=== PATIENT | male | born 2000 | race Caucasian/White ===

== ENCOUNTER 2024-01-28 22:23 | Emergency (ER) | payer BC, SELFPAY ==
[2024-01-28 22:29] VITALS: BP 125/60; PULSE 53; RESP 14; TEMP 36.6; O2SAT 100
--- NOTE | 2024-01-28 23:56 | PC.NURSE ---
Pt and mother walk up to intake desk and state they are leaving. Pt left without being seen by provider.
--- OUTSIDE RECORDS SUMMARY | 2024-02-05 00:26 | XMS_ITS | Encounter Summary ---
Author Organization [facility] Address [address] [place] [address] Care Team Providers Care Promotions Team Leader Name Role Phone Joseph Ramsay MD Primary Care Provider [phone] Reason for Visit * Reason Comments Laceration Facial Was tackled during f ootball, afterwards had a facial laceration to the left face, injury occurred around 1830 Encounter Details Date Type Department Care Team (Late st Contact Info) Description 10/04/2023 8:11 PM CDT - 10/04/2023 8:56 PM CDT Emergency [facility] EMERGENCY/URGENT [address] [place], [place] [id number] Rogelio Farr, [address] [place], [place] [id number] Facial laceration, initial encounter Discharge Disposition: Home or Self Care Social History Tobacco Use Types Packs/Day Years Used Date Smoking Tobacco: Never Smokeless Tobacco: Never Tobacco Cessation:Counseling Given: Not Answered Alcohol Use Standard Drinks/Week Comments Not Currently 0 (1 standard drink = 0.6 oz pur e alcohol) Sex and Gender Information Value Date Recorded Sex Assigned at Not on file Gender Identity Not on file Sexual Orientation Not on file documented as of this encounter Last Filed Vital Signs Vital Sign Reading Time Taken Comments Blood Pressure 130/79 10/04/2023 8:11 PM CDT Pulse 63 10/04/2023 8:11 PM CDT Temperature 36.5 ??C (97.7 ??F) 10/04/2023 8:11 PM CD T Respiratory Rate 16 10/04/2023 8:11 PM CDT Oxygen Saturation 96% 10/04/2023 8:11 PM CDT Inhaled Oxygen Concentration - - Weight 85.2 kg (187 lb 12.8 oz) 10/04/2023 8:11 PM CDT Height 182.9 cm (6') 10/04/2023 8:11 PM CDT Body Mass Index 25.47 10/04/2023 8:11 PM CDT documented in this encounter Discharge Instructions * Discharge Instructions* Rogelio Farr DO - 10/04/2023 8:40 PM CDT The glue willl fall off on its own. Sunblock SPF 30 for a year. It was a pleasure taking care of you today! Please make sure all of your questions and concerns are answered today before you leave. Return here or to the nearest ER as quickly as possible if worse in anyway or no better or something does not feel right. You should really watch for things like worsening pain, redness, fevers. If this happens you need to come immediately back to the nearest ER to have us look at you again. documented in this encounter ED Notes * Rogelio Farr DO - 10/04/2023 8:15 PM CDT Images from the original note were not included. Ramon Lazaro [id number] [facility] EM[facility] History Chief Complaint Patient presents with Laceration Facial Was tackled during football, afterwards had a facial laceration to the left face, injury occurred around 1830 Pt was playign footballa nd got tackled Came up off the ground nad had a laceration to the right cheek Face feels fine Jaw feels fine Bite feels fine No LOC Otherwise no other injuries or complaints. Past Medical History: Diagnosis Date Hand trauma right pinky fracture Past Surgical History: Procedure Laterality Date OR REVISE TEAR DUCT OPENING No family history on file. Social History Socioeconomic History Marital status: Spouse name: Not on file Number of children: Not on file Years of education: Not on file Highest education level: Not on file Occupational History Not on file Tobacco Use Smoking status: Never Smokeless tobacco: Never Substance and Sexual Activity Alcohol use: Not Currently Drug use: Not Currently Sexual activity: Not on file Other Topics Concern Not on file Social History Narrative Patient in the 6th grade. Lives with mother and father in [place]. Social Determinants of Health Financial Resource Strain: Not on file Food Insecurity: Not on file Transportation Needs: Not on file Stress: Not on file Housing Stability: Not on file Review of Systems Review of Systems Constitutional: Negative for fever. Respiratory: Negative for shortness of breath. Cardiovascular: Negative for chest pain. Gastrointestinal: Negative for vomiting. Neurological: Negative for headaches. All other systems reviewed and are negative. Physical Exam BP 130/79 Pulse 63 Temp 97.7 ??F (36.5 ??C) Resp 16 Ht 1.829 m (6') Wt 85.2 kg (187 lb 12.8 oz) SpO2 96% BMI 25.47 kg/m?? Physical Exam Vitals and nursing note reviewed. Constitutional: General: He is not in acute distress. HENT: Head: Normocephalic. Comments: Right cheek mild swelling, no bony tenderness. Bite normal. No midface instability. 1cm well approximated laceraiton just thru dermis to right cheek. Eyes: Conjunctiva/sclera: Conjunctivae normal. Pulmonary: Effort: No respiratory distress. Breath sounds: No stridor. Abdominal: Tenderness: There is no guarding. Skin: General: Skin is warm. Neurological: Mental Status: He is alert. Medications No current outpatient medications on file. Procedures Procedures Lab Interpretation Oxygen Saturation Interpretation No results found for this visit on 10/04/23. No orders to display Progress Notes ED Course Clinical Impressions as of 10/04/23 2350 Facial laceration, initial encounter Medical Decision Making The patient will require wound closure of this wound. Upon examination I do not find any evidence of bony injury. The patient's tetanus status is now up to date since I boosted him. Besides the laceration I do not feel that any other imaging needs to be performed,and there are no other complaints that need to be addressed at this time, and they agree. Procedure Note - Wound Repair: Procedure performed by myself. The wound, located on the right cheek, measured 1 cm and was linear. The level of complexity was: simple. The neurovascular exam was Normal. No evidence of foreign body was found on examination. The wound was irrigated with copious NS. The wound was closed using skinaffix.. Risk Prescription drug management. Orders Placed This Encounter Tdap (yepnjyk-ekrinjauly-aybte pertussis) (Boostrix) (7y+) injection 0.5 mL Follow-up Information Joseph Ramsay MD. Specialty: Pediatrics Contact information: [address] [place] [address] [facility] EM[facility]. Specialty: Emergency Room Contact information: [address] [facility] [address] documented in this encounter Plan of Treatment Not on file documented as of this encounter Visit Diagnoses Diagnosis Facial laceration, initial encounter documented in this encounter Care Teams Promotions Team Leader Relationship Specialty Start Date End Date Joseph Ramsay MD PCP - General Pediatrics 06/27/13 documented as of this encounter
--- OUTSIDE RECORDS SUMMARY | 2024-02-05 00:26 | XMS_ITS | Patient Health Summary ---
Author Organization [facility] Address [address] [place] [address] Care Team Providers Care Idea Worker Name Role Phone Joseph Ramsay MD Primary Care Provider [phone] Note from [facility] [place]note 2],non-owned Affiliates and Associated Physician Practices is amultiple site organization consisting of ambulatory clinics and hospital sitesin [place], [place], [place] and [place]. This disclosure is being madepursuant to the Care Everywhere program and may not contain all information available regarding this patient. Last updated 17.[facility] [employer] Allergies No known active allergies Medications Be aware that medications may not be up to date on this document. Always verify current medications with the patient. No known medications Active Problems No known active problems Immunizations * TDAP (7yrs+)(Given 10/04/2023) Social History Tobacco Use Types Packs/Day Years Used Date Smoking Tobacco: Never Smokeless Tobacco: Never Tobacco Cessation:Counseling Given: Not Answered Alcohol Use Standard Drinks/Week Comments Not Currently 0 (1 standard drink = 0.6 oz pur e alcohol) Sex and Gender Information Value Date Recorded Sex Assigned at Not on file Gender Identity Not on file Sexual Orientation Not on file Last Filed Vital Signs Vital Sign Reading [...] Mass Index 25.47 10/04/2023 8:11 PM CDT Procedures * XR SHOULDER LEFT 2VW OR MORE(Performed 12/22/2016) Performed for Chronic left shoulder pain * XR HAND RIGHT 3VW OR MORE(Performed 07/18/2013) Performed for Finger fracture, right * XR HAND RIGHT 3VW OR MORE(Performed 06/27/2013) Performed for Finger fracture, right Results * XR SHOULDER 2+ VW LEFT (12/22/2016 3:48 PM PRIVATE EQUITY ASSOCIATE) Anatomical Region Laterality Modality Upper Extremity Radiographic Melissa ging 12/22/2016 3:56 PM PRIVATE EQUITY ASSOCIATE Impressions 12/22/2016 3:59 PM PRIVATE EQUITY ASSOCIATE Normal Narrative 12/22/2016 3:59 PM PRIVATE EQUITY ASSOCIATE Left shoulder, 3 views December 22, 2016 HISTORY: Pain in left shoulder Axillary, internal and external rotation views are obtained. No dislocation is present. The acromioclavicular joint is normal. There is no fracture, dislocation, or abnormal bone production or destruction. Procedure Note Ck Hernandez MD - 12/22/2016 Left shoulder, 3 views December 22, 2016 HISTORY: Pain in left shoulder Axillary, internal and external rotation views are obtained. No dislocation is present. The acromioclavicular joint is normal. There is no fracture, dislocation, or abnormal bone production or destruction. IMPRESSION Normal Luis Desir MD DIAGNOSTIC IMAGING O RDERABLES * XR HAND 3+ VW RIGHT (07/18/2013 9:18 AM CDT) Only the most recent of2 resultswithin the time period is included. Anatomical Region Laterality Modality Wrist / Hand Radiographic Melissa ging 07/18/2013 11:1 1 AM CDT Impressions 07/18/2013 11:13 AM CDT Fracture, fifth metacarpal neck, healing. Narrative 07/18/2013 11:13 AM CDT Right hand three views The fifth metacarpal neck fracture is unchanged in position and alignment since 06/27/2013. Calcified callus has increased. Procedure Note Earline Chambers MD - 07/18/2013 Right hand three views The fifth metacarpal neck fracture is unchanged in position and alignment since 06/27/2013. Calcified callus has increased. IMPRESSION Fracture, fifth metacarpal neck, healing. Mariely Prince MD DIAGNOSTIC IMAG ING ORDERABLES Care Teams Idea Worker Relationship Specialty Start Date End Date Joseph Ramsay MD PCP - General Pediatrics 06/27/13
--- OUTSIDE RECORDS SUMMARY | 2024-02-05 00:26 | XMS_ITS | Clinical Summary ---
Author Organization [facility] [address] [facility] Address [address] [place] [address] Care Team Providers Care Legal Counsel Name Role Phone Teena Gallego Primary Care Provider [phone] Allergies No known active allergies Medications No known medications Active Problems Problem Noted Date Diagnosed Date Human papilloma virus (HPV) type 9 vaccine admin istered 08/01/2020 Assessment & Plan (08/01/2020 9:58 AM CDT): #2 given today. #3 due in 4 months. BMI 25.0-25.9,adult 07/28/2020 Assessment & Plan (07/28/2020 2:25 PM CDT): Weight/BMI is in healthy range. Continue healthy lifestyle to maintain. History of 2019 novel coronavirus disease (COVID -19) 07/28/2020 Assessment & Plan (07/28/2020 2:45 PM CDT): October 2019 Annual physical exam 07/28/2020 Assessment & Plan (08/31/2021 11:48 AM CDT): Form completed for school, copy will be scanned into chart. Copy was additionally given to the patient. Assessment & Plan (08/01/2020 9:58 AM CDT): Encouraged healthy lifestyle, good nutrition and exercise. Encouraged Calcium and Vitamin D and weight bearing exercise for bone health. Reviewed immunizations Reviewed age appropirate screenings. Has only recvd one Gardasil. Will provide #2 today and #3 is due in 4 months. I don't have a record of Meningitis B vaccine. Reviewed benefit with him living on campus. He will check with his mom. Resolved Problems Problem Noted Date Diagnosed Date Resolved Date COVID-19 07/28/2020 07/28/2020 Encounter for Medicare annual wellness exam 07/28/2020 08/01/2020 Immunizations Name Administration Dates Next Due DTaP, Unspecified 06/28/2006, 3,2001,08/23,2001 HPV9 07/28/2020,07/09/2019 Hep A, Unspecified 08/04/2009,07/06/2008 Hep B, Unspecified 07/25/2002,2001, 002 HiB 07/25/2002,2001,2001 Influenza, Unspecified 09/01/2022(Deferr ed: Patient Refused),03/08/2021(Deferred: Patient Refused) MMR 06/28/2006,07/25/2002 Meningococcal B, OMV (Bexsero) 07/09/2019 Meningococcal MCV4P (Menactra) 07/09/2019,2012 Pfizer SARS-CoV-2 Monovalent Vaccination (12+ Yrs) PURPLE 07/10/2020,06/12/2020 Pneumococcal Conjugate PCV 13 2002 ,01/20/2002,2001,06/26 Polio, Unspecified 06/28/2006, 3,2001,08/23 Tdap 09/29/2011 Varicella 06/28/2006,2002 Surgical History Surgery Date Site/Laterality Comments EYE SURGERY 6 months old, tear ducts Family History Medical History Relation Name Comments No Known Problems Father Diabetes Maternal Grandfather Liver cancer Maternal Grandmother Hyperthyroidism Mother Relation Name Status Comments Father Alive Maternal Grandfather Maternal Grandmother Mother Alive Social History Tobacco Use Types Packs/Day Years Used Date Smoking Tobacco: Never Smokeless Tobacco: Never Tobacco Cessation:Counseling Given: Not Answered AUDIT-C Answer Date Recorded Q1: How often do you have a drink containing alc ohol? Never 08/31/2021 Average Number of Drinks Not on file 022 Frequency of Binge Drinking Not on file 08/06 PHQ-2 Answer Date Recorded PHQ-2 Total Score (If total score is 3 or more points, staff should administer the PHQ-9) 0 09/01/2022 Personal Safety Answer Date Recorded Getting School Help Needed Not on file 02/03 Sex and Gender Information Value Date Recorded Sex Assigned at Not on file Legal Sex Male 11:17 AM CDT Gender Identity Not on file Sexual Orientation Not on file Obstetrics History Last Filed Vital Signs Vital Sign Reading Time Taken Comments Blood Pressure 110/76 09/01/2022 9:36 AM CDT Pulse 54 09/01/2022 9:36 AM CDT Temperature 36.5 ??C (97.7 ??F) 09/01/2022 9:36 AM CD T Respiratory Rate 12 08/31/2021 8:39 AM CDT Oxygen Saturation 98% 09/01/2022 9:36 AM CDT Inhaled Oxygen Concentration - - Weight 85.7 kg (189 lb) 09/01/2022 9:36 AM CDT Height 181.6 cm (5' 11.5 ) 09/01/2022 9:36 AM CD T Body Mass Index 25.99 09/01/2022 9:36 AM CDT Plan of Treatment Health Maintenance Due Date Last Done Comments Hepatitis C Screening 2001 Meningococcal B Vaccine (2 o f 2 - Risk Bexsero 2-dose series) 08/06/2019 07/09/2019 HPV Vaccines (3 - Male 3-dos e series) 10/20/2020 07/28/2020, 07/09/2019 DTaP/Tdap/Td Vaccine (7 - Td or Tdap) 09/28/2021 09/29/2011, 06/28/2006, 10/24/2002, Additional history exists Depression Screening 09/02/2023 09/01/2022, 08/31/2021, 07/28/2020 Regular Well Visit/Exam 18-64 09/02/2023 09/01/2022, 07/28/2020 Covid-19 Vaccine (3 - 2023-2 5 season) 2023 07/10/2020, 06/12/2020 Influenza Vaccine (#1) 2023 Pneumococcal vaccine <65 Completed 003, 01/20/2002, 2001, Additional history exists Varicella Vaccines Completed 06/28/2006, 2002 Insurance [employer] ACCESS CHOICE Care Teams Legal Counsel Relationship Specialty Start Date End Date Teena Gallego PA [address] [place] [address] PCP - General Internal Medicine 07/13/20
--- OUTSIDE RECORDS SUMMARY | 2024-02-05 00:26 | XMS_ITS | Encounter Summary ---
Author Organization [facility] Address [address] [place] [address] Care Team Providers Care Studio Associate Name Role Phone Joseph Ramsay MD Primary Care Provider [phone] Reason for Visit * Reason Comments Fracture Finger broke right pinky 4 weeks ago, today cast removal and xray done Encounter Details Date Type Department Care Team (Late st Contact Info) Description 07/18/2013 9:20 AM CDT - 07/18/2013 11:59 PM CDT Hospital Encounter [facility] Pediatrics - Plastic Surgery Division of Plastic Surgery [address] [place] [id number] Mariely Prince MD [address] [place] [id number] Discharge Disposition: Home or Self Care Social History Tobacco Use Types Packs/Day Years Used Date Smoking Tobacco: Never Assessed Sex and Gender Information Value Date Recorded Sex Assigned at Not on file Gender Identity Not on file Sexual Orientation Not on file documented as of this encounter Discharge Instructions * Patient Instructions* Merly Dempsey RN - 07/18/2013 9:57 AM CDT Please call with any questions, concerns or problems. documented in this encounter Progress Notes * Leann Mason - 07/18/2013 11:59 AM CDT Removed right SAC intrinsic plus. Skin dry and intact. * Mariely Prince MD - 07/18/2013 9:54 AM CDT Images from the original note were not included. Attending Physician: Mariely Prince MD Office Division of Pediatric Plastic Surgery 07/18/2013 9:54 AM PLASTIC SURGERY outpatient note Chief Complaint Patient presents with ??? Fracture Finger broke right pinky 4 weeks ago, today cast removal and xray done HISTORY OF PRESENT ILLNESS Ramon Lazaro is a 13 y.o. male who sustained a LSF MC head fracture 1 month ago. He has been in a cast for about 3.5 weeks, and tolerated it well. The cast was removed today and he has no pain, only minimal residual stiffness. Plastic Surgery History ?? ~06/20/13 fractured RSF ?? 06/27/13 seen at [facility] clinic, placed in ulnar gutter cast ?? 07/18/13 cast removed, x-ray shows good healing The frequency of the symptoms is improved. The patient's dominant hand is the Right. PAST MEDICAL AND SURGICAL HISTORY Past Medical History Diagnosis Date ??? Hand trauma right pinky fracture Past Surgical History Procedure Date ??? Pr revise tear duct opening No Known Allergies No current outpatient prescriptions on file. FAMILY HISTORY No family history on file. SOCIAL HISTORY Social History: History Social History Narrative Patient in the 6th grade. Lives with mother and father in [place]. REVIEW OF SYSTEMS Constitutional: no fevers, chills Musculoskeletal: no pain, slightly stiff from cast Neurologic: Negative and Constitutional: no fevers or chills Craniomaxillofacial: as defined above in HPI PHYSICAL EXAM General: alert, interactive male in no acute distress Extremities: right small finger w/o any bruising/sweling. Non-tender to palpation. Able to easily flex to full fist w/o any rotation/scissoring. Neurologic: alert, awake, no focal neurological deficits IMAGING AND STUDIES For the consultation question at hand, I independently visualized the following relevant studies: X-ray hand: no visible fracture. Good alignment. ASSESSMENT AND PLAN 13 yom about 5 weeks out from LSF MC head fx - doing well - clinically/radiographically healed - gentle activity for the next week, then normal activities as milind - RTC as needed Mariely Prince MD CC: Joseph Ramsay [id number] [facility] [id number] Date: 07/18/2013 9:54 AM * Ying Smith MD - 07/18/2013 9:52 AM CDT PLASTIC SURGERY outpatient note Chief Complaint Patient presents with ??? Fracture Finger broke right pinky 4 weeks ago, today cast removal and xray done HISTORY OF PRESENT ILLNESS Ramon Lazaro is a 13 y.o. male who sustained a LSF MC head fracture. He has been in a cast forabout 3.5 weeks, and tolerated it well. The cast was removed today and he has no pain, only minimalresidual stiffness. Plastic Surgery History ?? ~06/20/13 fractured RSF ?? 06/27/13 seen at [facility] clinic, placed in ulnar gutter cast ?? 07/18/13 cast removed, x-ray shows good healing The frequency of the symptoms is improved. . The patient's dominant hand is the Right. PAST MEDICAL AND SURGICAL HISTORY Past Medical History Diagnosis Date ??? Hand trauma right pinky fracture Past Surgical History Procedure Date ??? Pr revise tear duct opening No Known Allergies No current outpatient prescriptions on file. FAMILY HISTORY No family history on file. SOCIAL HISTORY Social History: History Social History Narrative Patient in the 6th grade. Lives with mother and father in [place]. REVIEW OF SYSTEMS Constitutional: no fevers, chills Musculoskeletal: no pain, slightly stiff from cast Neurologic: Negative and Constitutional: no fevers or chills Craniomaxillofacial: as defined above in HPI PHYSICAL EXAM General: alert, interactive, no acute distress Extremities: right small finger w/o any bruising/sweling. Non-tender to palpation. Able to easily flex to full fist w/o any rotation/scissoring. Neurologic: alert, awake, no focal neurological deficits X-ray hand: no visible fracture. Good alignment. ASSESSMENT AND PLAN 13 yom about 5 weeks out from LSF MC head fx - doing well - clinically/radiographically healed - gentle activity for the next week, then normal activities - RTC as needed documented in this encounter Miscellaneous Notes * Miscellaneous Scans - Document, Scanned - 07/22/2013 12:28 AM CDT documented in this encounter Plan of Treatment Not on file documented as of this encounter Visit Diagnoses Not on filedocumented in this encounter Care Teams Studio Associate Relationship Specialty Start Date End Date Joseph Ramsay MD PCP - General Pediatrics 06/27/13 documented as of this encounter
--- OUTSIDE RECORDS SUMMARY | 2024-02-05 00:26 | XMS_ITS | Referral Summary ---
Author Organization [facility] [address] [place] [address] Care Team Providers Care Conservation Coordinator Name Role Phone Teena Gallego Primary Care Provider [phone] Allergies No known active allergies Medications No [...] Unspecified 06/28/2006, 3,2001,08/23 Tdap 09/29/2011 Varicella 06/28/2006,2002 Social History Tobacco Use Types Packs/Day Years [...] 09/01/2022 9:36 AM CDT Plan of Treatment Not on file Insurance [facility] [employer] Care Teams Conservation Coordinator Relationship Specialty Start Date End Date Teena Gallego PA [address] [place] [address] PCP - General Internal Medicine 07/13/20
--- OUTSIDE RECORDS SUMMARY | 2024-02-05 00:26 | XMS_ITS | Encounter Summary ---
Author Organization [facility] Address [address] [place] [address] Care Team Providers Care Insulation Extruder Operator Name Role Phone Teena Gallego Primary Care Provider +1- [phone] Reason for Visit * Reason Comments Establish Care physical Encounter Details Date Type Department Care Team (Late st Contact Info) Description 07/28/2020 2:15 PM CDT Office Visit [facility] Family Medicine [address] [place] [address] Teena Gallego PA [address] [place] [address] Annual physical exam (Primary Dx); BMI 25.0-25.9,adult; Human papilloma virus (HPV) type 9 vaccine administered Social History Tobacco Use Types Packs/Day Years Used Date Smoking Tobacco: Never Smokeless Tobacco: Never PHQ-2 Answer Date Recorded PHQ-2 Total Score (If total score is 3 or more points, staff should administer the PHQ-9) 0 07/28/2020 Sex and Gender Information Value Date Recorded Sex Assigned at Not on file Legal Sex Male 11:17 AM CDT Gender Identity Not on file Sexual Orientation Not on file documented as of this encounter Last Filed Vital Signs Vital Sign Reading Time Taken Comments Blood Pressure 112/80 07/28/2020 2:23 PM CDT Pulse 64 07/28/2020 2:23 PM CDT Temperature - - Respiratory Rate 18 07/28/2020 2:23 PM CDT Oxygen Saturation 98% 07/28/2020 2:23 PM CDT Inhaled Oxygen Concentration - - Weight 85.5 kg (188 lb 6.4 oz) 07/28/2020 2:23 P M CDT Height 181.6 cm (5' 11.5 ) 07/28/2020 2:23 PM CD T Body Mass Index 25.91 07/28/2020 2:23 PM CDT documented in this encounter Progress Notes * Teena Gallego PA - 07/28/2020 2:15 PM CDT Subjective/Objective Patient ID: Ramon Lazaro is a 20 y.o. male. Chief Complaint Establish Care (physical) Vitals: 07/28/20 1423 BP: 112/80 Pulse: 64 Resp: 18 SpO2: 98% Weight: 85.5 kg (188 lb 6.4 oz) Height: 181.6 cm (5' 11.5 ) SUBJECTIVE: Ramon Lazaro is a 20 y.o. male presenting for well adolescent and school/sports physical. He is seen today alone. He needs an [facility] physical as he is playing football at [employer]. 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 [facility] requires Sickle cell labs -- he states he did it last year so will request it from [facility]. Planning Engineering degree. Had COVID in Oct 2019. Denies any residual sxs. PMH: No asthma, diabetes, heart disease, epilepsy or orthopedic problems in the past. ROS: no wheezing, cough or dyspnea, no chest pain, no abdominal pain, no headaches, no bowel or bladder symptoms, no pain or lumps in groin or testes. No problems during sports participation in the past. Social History: Denies the use of tobacco, alcohol or street drugs. Sexual history: not sexually active Parental concerns: patient doesn't voice any other concerns. OBJECTIVE: General appearance: WDWN male. ENT: ears and throat normal Eyes: Vision : 20/25 without correction PERRLA, fundi normal. Neck: supple, thyroid normal, no adenopathy Lungs: clear, no wheezing or rales Heart: no murmur, regular rate and rhythm, normal S1 and S2 Abdomen: no masses palpated, no organomegaly or tenderness Genitalia: genitalia not examined Spine: normal, no scoliosis Skin: Normal with no acne noted. Neuro: normal Extremities: normal Assessment/Plan Diagnoses and all orders for this visit: Annual physical exam (Z00.00) (Primary) Assessment & Plan: Encouraged healthy lifestyle, good nutrition and exercise. Encouraged Calcium and Vitamin D and weight bearing exercise for bone health. Reviewed immunizations Reviewed age appropirate screenings. Has only recvd one Gardasil. Will provide #2 today and #3 is due in 4 months. I don't have a record of Meningitis B vaccine. Reviewed benefit with him living on campus. He will check with his mom. Orders: - POCT urinalysis dipstick BMI 25.0-25.9,adult (Z68.25) Assessment & Plan: Weight/BMI is in healthy range. Continue healthy lifestyle to maintain. Human papilloma virus (HPV) type 9 vaccine administered (Z23) Assessment & Plan: #2 given today. #3 due in 4 months. Orders: - HPV9 Vaccine 2 or 3 dose IM Counseling: nutrition, safety, smoking, alcohol, drugs, puberty, peer interaction, sexual education, exercise, preconditioning for Sports. Reviewed concussion recognition/protocol Reviewed testicular cancer and self exam. Will complete form once Sickle cell labs are received from [facility]. documented in this encounter Miscellaneous Notes * Assessment & Plan Note - Teena Gallego PA - 08/01/2020 9:58 AM CDT Associated Problem(s): Human papilloma virus (HPV) type 9 vaccine administered #2 given today. #3 due in 4 months. * Assessment & Plan Note - Teena Gallego PA - 08/01/2020 9:52 AM CDT Associated Problem(s): Annual physical exam Encouraged healthy lifestyle, good nutrition and exercise. Encouraged Calcium and Vitamin D and weight bearing exercise for bone health. Reviewed immunizations Reviewed age appropirate screenings. Has only recvd one Gardasil. Will provide #2 today and #3 is due in 4 months. I don't have a record of Meningitis B vaccine. Reviewed benefit with him living on campus. He will check with his mom. * Assessment & Plan Note - Teena Gallego PA - 07/28/2020 2:45 PM CDT Associated Problem(s): History of 2019 novel coronavirus disease (COVID-19) October 2019 * Assessment & Plan Note - Tracy Gore LPN - 07/28/2020 2:25 PM CDT Associated Problem(s): BMI 25.0-25.9,adult Weight/BMI is in healthy range. Continue healthy lifestyle to maintain. documented in this encounter Plan of Treatment Not on file documented as of this encounter Procedures Procedure Name Priority Date/Time Associated Diagnosis Comments POCT URINALYSIS DIPSTICK Routine 07/28/2020 3:42 PM CDT Annual physical exam documented in this encounter Results * POCT urinalysis dipstick (07/28/2020 3:42 PM CDT) Color, Urine, POC Yellow Clarity, ur, POC Clear Clear Glucose, ur, POC Negative Negative mg/dL Bilirubin, ur, POC Negative Negative, Small, Moderate, Large Ketones, ur, POC Negative Negative Specific [place], POC 1.030 1.005 - 1.030 Blood, ur, POC Negative Negative pH, ur, POC 5.5 5.0 - 8.0 Protein, ur, POC Negative Negative Urobilinogen, urine, POC 0.2 0.2 - 1.0 mg/dL Nitrite, ur, POC Negative Negative Leukocytes, ur, POC Negative Negative Lot Number [id number] Urine 07/28/2020 3:42 PM CDT Teena WOOD POINT OF CARE TEST ORDERAB LES Final Result documented in this encounter Visit Diagnoses Diagnosis Annual physical exam- Primary Routine general medical examination at a health care facility BMI 25.0-25.9,adult Human papilloma virus (HPV) type 9 vaccine administered documented in this encounter Orders Immunization/Injection Count Last Ordered Date First Ordered Date HPV9 VACCINE 3 DOSE IM 1 07/28/2020 documented in this encounter Care Teams Insulation Extruder Operator Relationship Specialty Start Date End Date Teena Gallego PA [address] [address] PCP - General Internal Medicine 07/13/20 documented as of this encounter
--- OUTSIDE RECORDS SUMMARY | 2024-02-05 00:26 | XMS_ITS | Encounter Summary ---
Author Organization [facility] Address [address] [place] [address] Care Team Providers Care Distributor Advertising Material Name Role Phone Teena Gallego Primary Care Provider +1- [phone] Reason for Visit * Reason Onset Date Comments Paperwork 08/23/2020 Encounter Details Date Type Department Care Team (Late st Contact Info) Description 08/23/2020 Telephone [facility] Family Medicine [address] [place] [address] Teena Gallego PA [address] [place] [address] Paperwork Social History Tobacco Use Types Packs/Day Years [...] on file documented as of this encounter Miscellaneous Notes * Telephone Encounter - Tracy Gore LPN - 08/23/2020 4:39 PM CDT Received sickle cell report from [facility]. Mother contacted, will strip picker completed paperwork from office today. * Telephone Encounter - Casey Borrego MA - 08/23/2020 2:26 PM CDT Mother reach out to Dr. Zimmerman. Will go pick paper from his office. Pt would then in the office so we could make a copy/ scan in chart. * Telephone Encounter - Teena Gallego PA - 08/23/2020 11:31 AM CDT I am waiting on the Sickle cell report. Patient told us it was done at [facility]. We requested it from [facility] and we were told there was not a Sickle cell screen in their records. Encourage patient to request the results from Dr. Zimmerman (he can pick them up or have them faxed tous) OR he can come to our office to sign a written request so that we can request them for him (we just have to have his signature for Dr. Zimmerman to release it to us). The form is completed and ready to go once that report is received. * Telephone Encounter - Zunilda Ace - 08/23/2020 11:19 AM CDT Patients mom called in to check the status of the [employer] sports physical patient brought in for his INSTRUCTOR PSYCHIATRIC AIDE 07/28 OV. Patient has sickle cell test done in 2019, previous Diesel Service Journeyman was Dr. Zimmerman in [place]. Patient needs forms to turn back in by 09/05. Patients mom said that someone called letting her know that they were having trouble locating the sickle cell test at [facility] and patients mom said that the former general cleaner should have a copy. Patients mom said after that she had not heard anything. Did not see any notes regarding this matter in patients chart. documented in this encounter Plan of Treatment Not on file documented as of this encounter Visit Diagnoses Not on filedocumented in this encounter Care Teams Distributor Advertising Material Relationship Specialty Start Date End Date Teena Gallego PA [address] [place] [address] PCP - General Internal Medicine 07/13/20 documented as of this encounter
--- OUTSIDE RECORDS SUMMARY | 2024-02-05 00:26 | XMS_ITS | Encounter Summary ---
Author Organization [facility] Address [address] [place] [address] Care Team Providers Care Degreaser Name Role Phone Teena Gallego Primary Care Provider +1- [phone] Reason for Visit * Reason Comments Annual Exam Pt states he needs a complete check up for [employer], including a glucose test. Encounter Details Date Type Department Care Team (Late st Contact Info) Description 08/31/2021 8:45 AM CDT Office Visit [facility] Family Medicine [address] [place] [address] Elke Schaeffer PA [address] [place] [address] Annual physical exam (Primary Dx); BMI 26.0-26.9,adult Social History Tobacco Use Types Packs/Day Years Used Date Smoking Tobacco: Never Smokeless Tobacco: Never AUDIT-C Answer Date Recorded Q1: How often do you have a drink containing alc ohol? Never 08/31/2021 Average Number of Drinks Not on file 022 Frequency of Binge Drinking Not on file 08/06 PHQ-2 Answer Date Recorded PHQ-2 Total Score (If total score is 3 or more points, staff should administer the PHQ-9) 0 08/31/2021 Sex and Gender Information Value Date Recorded Sex Assigned at Not on file Legal Sex Male 11:17 AM CDT Gender Identity Not on file Sexual Orientation Not on file documented as of this encounter Last Filed Vital Signs Vital Sign Reading Time Taken Comments Blood Pressure 116/68 08/31/2021 8:39 AM CDT Pulse 56 08/31/2021 8:39 AM CDT Temperature 36.1 ??C (97 ??F) 08/31/2021 8:39 AM CDT Respiratory Rate 12 08/31/2021 8:39 AM CDT Oxygen Saturation 99% 08/31/2021 8:39 AM CDT Inhaled Oxygen Concentration - - Weight 88 kg (194 lb) 08/31/2021 8:39 AM CDT Height 181.6 cm (5' 11.5 ) 08/31/2021 8:39 AM CD T Body Mass Index 26.68 08/31/2021 8:39 AM CDT documented in this encounter Progress Notes * Elke Schaeffer PA - 08/31/2021 8:45 AM CDT Images from the original note were not included. Chief Complaint Annual Exam (Pt states he needs a complete check up for [employer], including a glucose test.) HPI Here for annual sports exam. 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 He is studying [employer]. He reports no new medical concerns at this time. He is not on any medications, and he has not had any surgeries. He denies any chest pain, shortness of breath, headaches, seizures, headaches or head injuries. He also notes that he needs a urinalysis to check for protein and glucose while he is here. Allergies as of 08/31/2021 ??? (No Known Allergies) No outpatient encounter medications on file as of 08/31/2021. No facility-administered encounter medications on file as of 08/31/2021. Review of Systems Constitutional: Negative for fatigue, fever and unexpected weight change. HENT: Negative for congestion. Respiratory: Negative for cough, chest tightness and shortness of breath. Cardiovascular: Negative for chest pain and palpitations. Gastrointestinal: Negative for abdominal pain. Genitourinary: Negative for difficulty urinating and dysuria. Musculoskeletal: Negative for arthralgias and back pain. Skin: Negative for color change. Neurological: Negative for dizziness. Hematological: Does not bruise/bleed easily. Psychiatric/Behavioral: Negative for confusion. The patient is not nervous/anxious. Vitals: 08/31/21 0839 BP: 116/68 Pulse: 56 Resp: 12 Temp: 36.1 ??C (97 ??F) TempSrc: Oral SpO2: 99% Weight: 88 kg (194 lb) Height: 181.6 cm (5' 11.5 ) Physical Exam Vitals and nursing note reviewed. Constitutional: General: He is not in acute distress. Appearance: Normal appearance. He is normal weight. He is not ill-appearing, toxic-appearing or diaphoretic. HENT: Head: Normocephalic and atraumatic. Right Ear: Tympanic membrane, ear canal and external ear normal. Left Ear: Tympanic membrane, ear canal and external ear normal. Eyes: Extraocular Movements: Extraocular movements intact. Cardiovascular: Rate and Rhythm: Normal rate and regular rhythm. Heart sounds: Normal heart sounds. No murmur heard. No friction rub. No gallop. Pulmonary: Effort: Pulmonary effort is normal. No respiratory distress. Breath sounds: Normal breath sounds. No stridor. No wheezing, rhonchi or rales. Chest: Chest wall: No tenderness. Abdominal: General: Bowel sounds are normal. There is no distension. Palpations: Abdomen is soft. There is no mass. Tenderness: There is no abdominal tenderness. There is no guarding or rebound. Hernia: No hernia is present. Musculoskeletal: General: No swelling, tenderness, deformity or signs of injury. Normal range of motion. Cervical back: Normal range of motion. Skin: General: Skin is warm and dry. Neurological: Mental Status: He is alert and oriented to person, place, and time. Psychiatric: Mood and Affect: Mood normal. Behavior: Behavior normal. Thought Content: Thought content normal. Assessment/Plan Diagnoses and all orders for this visit: Annual physical exam (Z00.00) (Primary) Assessment & Plan: Form completed for school, copy will be scanned into chart. Copy was additionally given to the patient. Orders: - POCT urinalysis dipstick BMI 26.0-26.9,adult (Z68.26) Orders Placed This Encounter ??? POCT urinalysis dipstick NINA Foster documented in this encounter Miscellaneous Notes * Assessment & Plan Note - Elke Schaeffer PA - 08/31/2021 11:48 AM CDT Associated Problem(s): Annual physical exam Form completed for school, copy will be scanned into chart. Copy was additionally given to the patient. documented in this encounter Plan of Treatment Not on file documented as of this encounter Procedures Procedure Name Priority Date/Time Associated Diagnosis Comments POCT URINALYSIS DIPSTICK Routine 08/31/2021 9:26 AM CDT Annual physical exam documented in this encounter Results * POCT urinalysis dipstick (08/31/2021 9:26 AM CDT) Color, Urine, POC Light Yellow Clarity, ur, POC Clear Clear Glucose, ur, POC Negative Negative MG/DL Bilirubin, ur, POC Negative Negative, Small, Moderate, Large Ketones, ur, POC Negative Negative Specific [place], POC 1.025 1.005 - 1.030 Blood, ur, POC Negative Negative pH, ur, POC 5.5 5.0 - 8.0 Protein, ur, POC Negative Negative Urobilinogen, urine, POC 0.2 0.2 - 1.0 mg/dL Nitrite, ur, POC Negative Negative Leukocytes, ur, POC Negative Negative Lot Number [id number] Urine 08/31/2021 9:26 AM CDT Elke WOOD POINT OF CARE TEST ORDERAB LES Final Result documented in this encounter Visit Diagnoses Diagnosis Annual physical exam- Primary Routine general medical examination at a health care facility BMI 26.0-26.9,adult documented in this encounter Care Teams Degreaser Relationship Specialty Start Date End Date Teena Gallego PA [address] [place] [address] PCP - General Internal Medicine 07/13/20 documented as of this encounter
--- OUTSIDE RECORDS SUMMARY | 2024-02-05 00:26 | XMS_ITS | Continuity of Care Document ---
Author Organization [facility] Address [address] [place] [address]- Encounter ROSAURA HAYES [id number] Date(s): 11/10/19 - 11/10/19 [facility] [address] [place] [address]- Encounter Diagnosis Lab test positive for detection of COVID-19 virus(Discharge Diagnosis) - 11/10/19 Discharge Disposition: Home or Self Care Attending Physician: Vinod Tanner DO (Family Medicine) Allergies, Adverse Reactions, Alerts No Known Medication Allergies Assessment and Plan Extracted from: Title:Office Visit Note Author:Vinod Tanner DO (Family Medicine) Date:11/10/19 1.??Lab test positive for de tection of COVID-19 virus??U07.1 The patient??is??asymptomatic and??exam today is normal.?? The patient is cleared for return to sport??after progressions as dictated by??[employer] guidelines. Medications No Known Medications Problem List Condition Effective Dates Status Health Status Inform ant Lab test positive for detect ion of COVID-19 virus(Confirmed) Active Procedures Procedure Date Related Diagnosis Body Site Status Tear duct obstruction Com pleted Vital Signs Most recent to oldest [Reference Range]: 1 Apical Heart Rate [60-100 bpm] 76 bpm (11/10/19 8:21 AM) Respiratory Rate [14-20 br/min] 16 br/mi n (11/10/19 8:21 AM) Blood Pressure [90-140/60-90 mmHg] 112/7 6mmHg (11/10/19 8:21 AM) Mean Arterial Pressure, Cuff 88 mmHg (11/10/19 8:21 AM) BP Site Left arm (11/10/19 8:21 AM) BP Cuff Size Medium (11/10/19 8:21 AM) BP Method Manual (11/10/19 8:21 AM) Temperature Temporal Artery [36.3-37.8 D egC] 36.7 DegC (11/10/19 8:21 AM) SpO2 [90-100 %] 97 % (11/10/19 8:21 AM) SpO2 Detail At rest (11/10/19 8:21 AM) Oxygen Therapy Room air (11/10/19 8:21 AM) Weight 83 kg (11/10/19 8:21 AM) Weight Measured (lbs) 182.983 lb (11/10/19 8:21 AM) Social History Social History Type Response Smoking Status Never (less than 100 in lifetime);Never entered on: 11/10/19 Sex
--- OUTSIDE RECORDS SUMMARY | 2024-02-05 00:26 | XMS_ITS | Encounter Summary ---
Author Organization [facility] Address [address] [place] [address] Care Team Providers Care Defense Analyst Name Role Phone Teena Gallego Primary Care Provider +1- [phone] Reason for Visit * Reason Onset Date Comments Covid-19 Home Monitoring 07/29/2020 Encounter Details Date Type Department Care Team (Late st Contact Info) Description 07/29/2020 Telephone [facility] Accountable Care Organization [address] [place] [address] Rupinder Knowles MA [address] [place] [address] [address] [facility] [address] [place] [address] Covid-19 Home Monitoring Social History Tobacco Use Types Packs/Day Years [...] encounter Miscellaneous Notes * Telephone Encounter - Rupinder Knowles MA - 07/29/2020 12:49 PM CDT This patient is not currently a good candidate for our COVID-19 home monitoring program because there is no evidence of COVID in patient's chart. By saving a note using this template, the patient will drop off our home monitoring candidate reports for two weeks. If we still consider them to have an active case of COVID-19 at that time, we willreevaluate them for home monitoring. documented in this encounter Plan of Treatment Not on file documented as of this encounter Visit Diagnoses Not on filedocumented in this encounter Care Teams Defense Analyst Relationship Specialty Start Date End Date Teena Gallego PA [address] [address] PCP - General Internal Medicine 07/13/20 documented as of this encounter
--- OUTSIDE RECORDS SUMMARY | 2024-02-05 00:26 | XMS_ITS | Encounter Summary ---
Author Organization [facility] Address [address] [place] [address] Care Team Providers Care Set Up Mechanic Crown Assembly Machine Name Role Phone Joseph Ramsay MD Primary Care Provider [phone] Reason for Visit * Reason Comments Shoulder Pain left Encounter Details Date Type Department Care Team (Late st Contact Info) Description 12/22/2016 2:45 PM OCCUPATIONAL HEALTH COORDINATOR - 12/22/2016 3:38 PM OCCUPATIONAL HEALTH COORDINATOR Hospital Encounter [facility] [address] [facility] [place] [address] Luis Desir MD [address] [facility] [place] [address] Discharge Disposition: Home or Self Care Social History Tobacco Use Types Packs/Day Years Used Date Smoking Tobacco: Never Assessed Sex and Gender Information Value Date Recorded Sex Assigned at Not on file Gender Identity Not on file Sexual Orientation Not on file documented as of this encounter Last Filed Vital Signs Vital Sign Reading Time Taken Comments Blood Pressure - - Pulse - - Temperature - - Respiratory Rate - - Oxygen Saturation - - Inhaled Oxygen Concentration - - Weight 69.2 kg (152 lb 8.9 oz) 12/22/2016 3:10 P M OCCUPATIONAL HEALTH COORDINATOR Height 176 cm (5' 9.29 ) 12/22/2016 3:10 PM OCCUPATIONAL HEALTH COORDINATOR Body Mass Index 22.34 12/22/2016 3:10 PM OCCUPATIONAL HEALTH COORDINATOR Body Mass Index Percentile 74.07% 12/22/2016 3:1 0 PM OCCUPATIONAL HEALTH COORDINATOR Growth Chart: CDC (Boys, 2-2 0 Years) documented in this encounter Discharge Instructions * Patient Instructions* Luis Desir MD - 12/22/2016 3:53 PM OCCUPATIONAL HEALTH COORDINATOR Images from the original note were not included. Adult and Pediatric Sports Medicine Ramon Lazaro 12/22/2016 Thank you for coming in to see us today for your shoulder. This is a school excuse note for today. We recommend that you try the following for your injury: icing, physical therapy exercises and anti-inflammatory medications He may participate in sports and activities without restrictions as symptoms improve. Please call our clinic to make an appointment if your symptoms are not improving, or if something about your condition significantly changes. [facility] Orthopaedic office contact information: [facility] [address] [place] [address]. [id number] [place] [address] 2nd [address], [address] [place] [address] [place], [place] [id number] [place] [address] [place] [id number] [place] [address] at [facility] [address] [facility], [place], [place] [address] Please contact Marvin Crews (clinical nurse specialist) at or email: [email or web address] if you have any further questions or concerns. Sincerely, Luis Desir MD [email or web address] PATIONAL HEALTH COORDINATOR documented in this encounter Progress Notes * Luis Desir MD - 12/22/2016 3:36 PM CST Luis Desir MD ORTHOPAEDIC SPORTS MEDICINE [address] [place] [address] Dept: [phone] Joseph Ramsay MD ; Today we had the pleasure of seeing Ramon Lazaro in [facility] Pediatric Orthopaedic Sports Medicine Clinic at [facility] for evaluation of his left shoulder injury. Ramon Lazaro is a 16 y.o. male who sustained a twisting injury to his left shoulder in football ([employer]). No sarai dislocation. No prior shoulder injury. Anterior shoulder pain. The symptomsare activity-related and improved with rest. No fevers, chills, numbness, paresthesias or gross motor weakness. They have tried icing, anti-inflammatory medications and activity modification for their symptoms. SANE Score (0-100): 80 Medications No current outpatient prescriptions on file prior to encounter. No current facility-administered medications on file prior to encounter. Allergies as of 12/22/2016 ??? (No Known Allergies) Past Medical History: Diagnosis Date ??? Hand trauma right pinky fracture Past Surgical History: Procedure Laterality Date ??? [facility] REVISE TEAR DUCT OPENING 15 Point review of systems was otherwise negative as reviewed today. Social History Occupational History ??? Not on file. Social History Main Topics ??? Smoking status: Not on file ??? Smokeless tobacco: Not on file ??? Alcohol use Not on file ??? Drug use: Not on file ??? Sexual activity: Not on file Family History No family history on file. Physical Exam: No cervical spine tenderness and full neck range of motion in all 6 directions. No step off or deformity noted. Evaluation of the uninjured right shoulder noted no skin lesions, neurovascularly intact. There wasno tenderness/swelling/deformity. Ligamentously stable glenohumeral joint. Full active and passive range of motion. Good strength. The left shoulder is neurovascularly intact with no active skin lesions. There is no scapular winging. There is no tenderness of the proximal humerus. There is unrestricted passive range of motion. There is unrestricted active range of motion. There is good strength. There is not a sulcus sign. There is no generalized ligamentous laxity. There is no anterior apprehension. Relocation test is negative. There is no posterior apprehension. Phelps's test is negative. Imaging: shoulder X-rays images reviewed by me are normal. Impression: Left shoulder strain Plan: We recommended that they try the following to treat their injury: icing, physical therapy exercisesand anti-inflammatory medications. He may participate in sports and activities without restrictionsas symptoms improve. We will gladly see him back if he is not improving in the future. Please do not hesitate to contact me with questions regarding him or any other patient in the future. Our clinical nurse, Marvin Crews, can be reached at and by email at [email or web address]. My personal email is [email or web address]. Sincerely, Luis Desir MD PATIONAL HEALTH COORDINATOR * Tequila Todd RN - 12/22/2016 3:11 PM CST Two months ago came down on shoulder while playing football and tackling. Still causing patient pain. Hurts to do push ups, pull ups, or bench presses. PATIONAL HEALTH COORDINATOR documented in this encounter Plan of Treatment Not on file documented as of this encounter Visit Diagnoses Diagnosis Chronic left shoulder pain- Primary Pain in joint, shoulder region documented in this encounter Care Teams Set Up Mechanic Crown Assembly Machine Relationship Specialty Start Date End Date Joseph Ramsay MD PCP - General Pediatrics 06/27/13 documented as of this encounter
--- OUTSIDE RECORDS SUMMARY | 2024-02-05 00:26 | XMS_ITS | Encounter Summary ---
Author Organization [facility] Address [address] [place] [address] Care Team Providers Care Quality Rn Name Role Phone Joseph Ramsay MD Primary Care Provider [phone] Encounter Details Date Type Department Care Team (Late st Contact Info) Description 07/18/2013 8:58 AM CDT - 07/18/2013 9:19 AM CDT Hospital Encounter [facility] Pediatrics - Radiology [address] [place] [address] Mariely Prince MD [address] [place] [address] Discharge Disposition: Home or Self Care Social History Tobacco Use Types Packs/Day Years Used Date Smoking Tobacco: Never Assessed Sex and Gender Information Value Date Recorded Sex Assigned at Not on file Gender Identity Not on file Sexual Orientation Not on file documented as of this encounter Plan of Treatment Not on file documented as of this encounter Procedures Procedure Name Priority Date/Time Associated Diagnosis Comments XR HAND RIGHT 3VW OR MORE Routine 07/18/2013 9:18 AM CDT Finger fracture, right documented in this encounter Results * XR HAND 3+ VW RIGHT (07/18/2013 9:18 AM CDT) Anatomical Region Laterality Modality Wrist / Hand [...] Mariely Prince MD DIAGNOSTIC IMAG ING ORDERABLES documented in this encounter Visit Diagnoses Diagnosis Finger fracture, right- Primary Closed fracture of unspecified phalanx or phalanges of hand Aftercare for healing traumatic fracture of other bone documented in this encounter Care Teams Quality Rn Relationship Specialty Start Date End Date Joseph Ramsay MD PCP - General Pediatrics 06/27/13 documented as of this encounter
--- OUTSIDE RECORDS SUMMARY | 2024-02-05 00:26 | XMS_ITS | Referral Summary ---
Author Organization [facility] Address [address] [place] [address] Care Team Providers Care Concrete Plant Laborer Name Role Phone Joseph Ramsay MD Primary Care Provider [phone] Source Comments [facility],non-owned Affiliates and Associated Physician Practices is amultiple site organization consisting of ambulatory clinics and hospital sitesin [place], [place], [place] and [place]. This disclosure is being madepursuant to the Care Everywhere program and may not contain all information available regarding this patient. Last updated 17.[facility] Allergies No known active allergies Medications Be aware that medications may not be up to date on this document. Always verify current medications with the patient. No known medications Active Problems No known active problems Immunizations Name Administration Dates Next Due TDAP (7yrs+) 10/04/2023 Social History Tobacco Use Types Packs/Day Years [...] Mass Index 25.47 10/04/2023 8:11 PM CDT Plan of Treatment Not on file Care Teams Concrete Plant Laborer Relationship Specialty Start Date End Date Joseph Ramsay MD PCP - General Pediatrics 06/27/13
--- OUTSIDE RECORDS SUMMARY | 2024-02-05 00:26 | XMS_ITS | Encounter Summary ---
Author Organization [facility] Address [address] [place] [address] Care Team Providers Care Retail Department Manager Name Role Phone Joseph Ramsay MD Primary Care Provider [phone] Encounter Details Date Type Department Care Team (Late st Contact Info) Description 12/22/2016 3:39 PM MAINTENANCE WORKER SWIMMING POOL - 12/22/2016 11:59 PM MAINTENANCE WORKER SWIMMING POOL Hospital Encounter [facility] - Radiology [address] [place] [address] Luis Desir MD [address] [facility] [place] [address] Discharge Disposition: Home or Self Care Social [...] Name Priority Date/Time Associated Diagnosis Comments XR SHOULDER LEFT 2VW OR MORE Routine 12/22/2016 3:48 PM MAINTENANCE WORKER SWIMMING POOL Chronic left shoulder pain documented in this encounter Results * XR SHOULDER 2+ VW LEFT (12/22/2016 3:48 PM MAINTENANCE WORKER SWIMMING POOL) Anatomical Region Laterality Modality Upper Extremity Radiographic Melissa ging 12/22/2016 3:56 PM MAINTENANCE WORKER SWIMMING POOL Impressions 12/22/2016 3:59 PM MAINTENANCE WORKER SWIMMING POOL Normal Narrative 12/22/2016 3:59 PM MAINTENANCE WORKER SWIMMING POOL Left shoulder, 3 views December 22, 2016 [...] Luis Desir MD DIAGNOSTIC IMAGING O RDERABLES documented in this encounter Visit Diagnoses Diagnosis Chronic left shoulder pain Pain in joint, shoulder region documented in this encounter Care Teams Retail Department Manager Relationship Specialty Start Date End Date Joseph Ramsay MD PCP - General Pediatrics 06/27/13 documented as of this encounter
--- OUTSIDE RECORDS SUMMARY | 2024-02-05 00:26 | XMS_ITS | Encounter Summary ---
Author Organization [facility] Address [address] [facility] [address] [place] [address] Care Team Providers Care Process Controls Technician Name Role Phone Teena Gallego Primary Care Provider [phone] Reason for Visit * Reason Comments Annual Exam Sports phy Encounter Details Date Type Department Care Team (Late st Contact Info) Description 09/01/2022 9:30 AM CDT Office Visit [facility] Internal Medicine at [place] [address] [place] [address] Neli Moses, FIELD CARE ADVOCATE [address] [place] [address] Annual physical exam (Primary Dx); BMI 25.0-25.9,adult Social History Tobacco Use Types Packs/Day Years [...] staff should administer the PHQ-9) 0 09/01/2022 Sex and Gender Information Value Date Recorded [...] 09/01/2022 9:36 AM CD T Respiratory Rate - - Oxygen Saturation 98% 09/01/2022 9:36 AM CDT Inhaled Oxygen Concentration - - Weight 85.7 kg (189 lb) 09/01/2022 9:36 AM CDT Height 181.6 cm (5' 11.5 ) 09/01/2022 9:36 AM CD T Body Mass Index 25.99 09/01/2022 9:36 AM CDT documented in this encounter Patient Instructions * Patient Instructions* Neli Moses NP - 09/01/2022 9:30 AM CDT Routine annual physical completed today. Follow-up in 1 year sooner as needed. Contact the office with any questions or concerns documented in this encounter Progress Notes * Neli Moses NP - 09/01/2022 9:30 AM CDT Images from the original note were not included. Subjective/Objective Patient ID: Ramon Lazaro is a 22 y.o. male. Visit Date: 09/01/2022 Chief Complaint Annual Exam (Sports phy) HPI 22-year-old gentleman in for annual sports physical. Has no complaints concerns or needs. He has noknown allergies. Does need a urine completed for protein and glucose. 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 HENT: Negative for congestion, ear pain, nosebleeds, rhinorrhea and sinus pressure. Respiratory: Negative for cough and shortness of breath. Cardiovascular: Negative for chest pain and palpitations. Gastrointestinal: Negative for abdominal pain. Endocrine: Negative for cold intolerance. Genitourinary: Negative for difficulty urinating and hematuria. Musculoskeletal: Negative for back pain and myalgias. Neurological: Negative for dizziness, weakness and headaches. Psychiatric/Behavioral: Negative for agitation, confusion and sleep disturbance. Physical Exam Constitutional: Appearance: Normal appearance. He is well-developed and normal weight. HENT: Head: Normocephalic and atraumatic. Right Ear: Tympanic membrane normal. Left Ear: Tympanic membrane normal. Nose: Nose normal. Mouth/Throat: Mouth: Mucous membranes are moist. Eyes: Pupils: Pupils are equal, round, and reactive to light. Cardiovascular: Rate and Rhythm: Normal rate and regular rhythm. Heart sounds: Normal heart sounds. Pulmonary: Effort: Pulmonary effort is normal. Breath sounds: Normal breath sounds. Abdominal: General: Bowel sounds are normal. There is no distension. Palpations: Abdomen is soft. Musculoskeletal: General: No tenderness. Normal range of motion. Cervical back: Normal range of motion and neck supple. Skin: General: Skin is warm and dry. Capillary Refill: Capillary refill takes less than 2 seconds. Findings: No rash. Neurological: Mental Status: He is alert and oriented to person, place, and time. Psychiatric: Behavior: Behavior normal. Thought Content: Thought content normal. Assessment/Plan Diagnoses and all orders for this visit: Annual physical exam (Z00.00) (Primary) Comments: Routine annual physical completed today. Follow-up in 1 year sooner as needed BMI 25.0-25.9,adult (Z68.25) Comments: Maintain healthy and balanced diet documented in this encounter Plan of Treatment Not on file documented as of this encounter Procedures Procedure Name Priority Date/Time Associated Diagnosis Comments POCT URINALYSIS DIPSTICK Routine 09/01/2022 10:04 AM CDT Annual physical exam documented in this encounter Results * POCT urinalysis dipstick (09/01/2022 10:04 AM CDT) Color, Urine, POC Yellow Clarity, ur, POC Clear Clear Glucose, ur, POC Negative Negative MG/DL Bilirubin, ur, POC Negative Negative, Small, Moderate, Large Ketones, ur, POC Negative Negative Specific [place], POC 1.030 1.003 - 1.030 Blood, ur, POC Negative Negative pH, ur, POC 6.0 5.0 - 8.0 Protein, ur, POC Negative Negative Urobilinogen, urine, POC 0.2 0.2 - 1.0 mg/dL Nitrite, ur, POC Negative Negative Leukocytes, ur, POC Negative Negative Lot Number [id number] Urine 09/01/2022 10:0 4 AM CDT Neli Moses FIELD CARE ADVOCATE POINT OF CARE TEST ORDERABLES Final Result documented in this encounter Visit Diagnoses Diagnosis Annual physical exam- Primary Routine general medical examination at a health care facility BMI 25.0-25.9,adult documented in this encounter Care Teams Process Controls Technician Relationship Specialty Start Date End Date Teena Gallego PA [address] [facility] [address] [place] [address] PCP - General Internal Medicine 07/13/20 documented as of this encounter
--- OUTSIDE RECORDS SUMMARY | 2024-02-05 00:26 | XMS_ITS | Encounter Summary ---
Author Organization [facility] Address [address] [facility] [address] [place] [address] Care Team Providers Care Speed Belt Sander Tender Name Role Phone Teena Gallego Primary Care Provider [phone] Reason for Visit * Reason Onset Date Comments Covid-19 Home Monitoring 08/24/2020 Encounter Details Date Type Department Care Team (Late st Contact Info) Description 08/24/2020 Telephone [facility] Accountable Care Organization [address] [place] [address] Rupinder Knowles MA [address] [place] [address] [address] [facility] [address] [place] [address] Covid-19 Home Monitoring Social History Tobacco Use [...] Telephone Encounter - Rupinder Knowles MA - 08/24/2020 9:15 AM CDT This patient is not currently a good candidate for our COVID-19 home monitoring program because there is no active COVID in patient's chart. By saving a [...] on filedocumented in this encounter Care Teams Speed Belt Sander Tender Relationship Specialty Start Date End Date Teena Gallego PA [address] [facility] [address] [place] [address] PCP - General Internal Medicine 07/13/20 documented as of this encounter
--- OUTSIDE RECORDS SUMMARY | 2024-02-05 00:26 | XMS_ITS | Encounter Summary ---
Author Organization [facility] Address [address] [place] [address] Care Team Providers Care Whanau Support Worker Name Role Phone Joseph Ramsay MD Primary Care Provider [phone] Reason for Visit * Reason Comments Injury Finger right pinky fracture from falling off gas scooter. injury happened Sat 6 days ago. seen at [facility] and placed in splint Encounter Details Date Type Department Care Team (Late st Contact Info) Description 06/27/2013 9:50 AM CDT Hospital Encounter [facility] - Plastic Surgery Division of Plastic Surgery [address] [place] [address]. [place] [address] Mariely Prince MD [address] [place] [id number] Discharge Disposition: Home or Self Care Social History Tobacco Use Types Packs/Day Years Used Date Smoking Tobacco: Never Assessed Sex and Gender Information Value Date Recorded Sex Assigned at Not on file Gender Identity Not on file Sexual Orientation Not on file documented as of this encounter Discharge Instructions * Patient Instructions* Merly Dempsey RN - 06/27/2013 10:52 AM CDT Your child will be casted for 3 weeks. Please arrive 30 minutes prior to your scheduled appointment to get an xray prior to seeing the physician. Clinical nurse Kassi: [phone] ext [phone]. Clinical nurse Lianet: [phone] dominique Guadalupe unit secretary: [phone] #4 documented in this encounter Progress Notes * Mariely rPince MD - 06/27/2013 5:53 PM CDT Images from the original note were not included. Attending Physician: Mariely Prince MD Office Division of Pediatric Plastic Surgery 06/27/2013 5:53 PM PLASTIC SURGERY outpatient note Chief Complaint Patient presents with ??? Injury Finger right pinky fracture from falling off gas scooter. injury happened Sat 6 days ago. seen at [facility] and placed in splint HISTORY OF PRESENT ILLNESS Ramon Lazaro is a 13 y.o. male who sustained a fracture to right small finger metacarpal head.Patient fell off gas powered scooter 6 days ago and was seen by [facility]. Patient was diagnosed with right small finger fracture within the growth plate. Referred by patient's water control supervisor to [facility] for follow up. Patient reports immediate swelling, but no bruising. Patient complains of pain at the head of his small finger metacarpal. Pain controlled with ibuprofen. Denies any other symptoms. Plastic Surgery History none PAST MEDICAL AND SURGICAL HISTORY Past Medical History Diagnosis Date ??? Hand trauma right pinky fracture Past Surgical History Procedure Date ??? Pr revise tear duct opening No Known Allergies No current outpatient prescriptions on file. FAMILY HISTORY No family history on file. SOCIAL HISTORY Social History: History Social History Narrative Patient in the 6th grade. Lives with mother and father in [place]. REVIEW OF SYSTEMS Constitutional: no fevers, chills Musculoskeletal: Negative Neurologic: Negative PHYSICAL EXAM General: alert, interactive male child in no acute distress Extremities: Right upper extremity Right small finger with minimal swelling over palm. Small cut at the base of the volar proximal phalanx of the small finger on the right hand. Abrasion to extensor surface of forearm. No bruising present. Tender to palpation over the head of the right small finger metacarpal. No scissoring. Sensation intact. Good capillary refill. Extension and flexion intact. Neurologic: alert, awake, no focal neurological deficits IMAGING AND STUDIES For the consultation question at hand, I independently visualized the following relevant studies: Xrays of the R hand independently reviewed and reveal subtle cortical irregularity at the neck of the small finger metacarpal c/w ND SH2 fx. ASSESSMENT AND PLAN 13 yo boy with likely nondisplaced Salter Gómez type II fracture of right small finger metacarpal. We discussed the nature of injury to the growth plate and potential effect on future growth. Otherwise his fracture is well aligned with good finger function noted and will continue to heal with immobilization for total ~4 weeks. Ulnar gutter cast will be applied today. Avoid sports/PE-note given. F/U 3 weeks for cast removal and reexam or sooner prn concerns. Mariely Prince MD CC: Joseph Ramsay [address] [facility] [address] / [facility] [id number] Date: 06/27/2013 5:53 PM * Myra Norris MD - 06/27/2013 1:40 PM CDT PLASTIC SURGERY outpatient note Chief Complaint Patient presents with ??? Injury Finger right pinky fracture from falling off gas scooter. injury happened Sat 6 days ago. seen at [facility] and placed in splint HISTORY OF PRESENT ILLNESS Ramon Lazaro is a 13 y.o. male who sustained a fracture to right small finger metacarpal head.Patient fell off gas powered scooter 6 days ago and was seen by [facility]. Patient was diagnosed with right small finger fracture within the growth plate. Referred by patient's water control supervisor to [facility] for follow up. Patient reports immediate swelling, but no bruising. Patient complains of pain at the head of his small finger metacarpal. Pain controlled with ibuprofen. Denies any other symptoms. Plastic Surgery History none PAST MEDICAL AND SURGICAL HISTORY Past Medical History Diagnosis Date ??? Hand trauma right pinky fracture Past Surgical History Procedure Date ??? Pr revise tear duct opening No Known Allergies No current outpatient prescriptions on file. FAMILY HISTORY No family history on file. SOCIAL HISTORY Social History: History Social History Narrative Patient in the 6th grade. Lives with mother and father in [place]. REVIEW OF SYSTEMS Constitutional: no fevers, chills Musculoskeletal: Negative Neurologic: Negative PHYSICAL EXAM General: alert, interactive, no acute distress Extremities: Right upper extremity Right small finger with minimal swelling over palm. Small cut at the base of the proximal phalanx of the small finger on the right hand. Abrasion to extensor surface of forearm. No bruising present. Tender to palpation over the head of the right small finger metacarpal. No scissoring. Sensation intact. Good capillary refill. Extension and flexion intact. Neurologic: alert, awake, no focal neurological deficits ASSESSMENT AND PLAN 13 yo boy with Salter Gómez type II fracture of right small finger metacarpal - Patient to placed in an ulnar gutter cast and follow up in 3 weeks with x-ray documented in this encounter Miscellaneous Notes * Miscellaneous Scans - Document, Scanned - 07/03/2013 11:13 PM CDT * Miscellaneous Scans - Document, Scanned - 07/02/2013 5:49 AM CDT documented in this encounter Plan of Treatment Not on file documented as of this encounter Results * XR HAND 3+ [...] Mariely Prince MD DIAGNOSTIC IMAG ING ORDERABLES * XR HAND 3+ VW RIGHT (06/27/2013 9:55 AM CDT) Anatomical Region Laterality Modality Wrist / Hand Radiographic Melissa ging 06/27/2013 10:1 6 AM CDT Impressions 06/27/2013 10:17 AM CDT Normal. Narrative 06/27/2013 10:17 AM CDT Right hand three views The bones, soft tissues, and joint spaces are normal. Procedure Note Earline Chambers MD - 06/27/2013 Right hand three views The bones, soft tissues, and joint spaces are normal. IMPRESSION Normal. Mariely Prince MD DIAGNOSTIC IMAG ING ORDERABLES documented in this encounter Visit Diagnoses Diagnosis Finger fracture, right- Primary Closed fracture of unspecified phalanx or phalanges of hand Finger fracture, right- Primary Closed fracture of unspecified phalanx or phalanges of hand Injury, other and unspecified, hand, except finger Finger fracture, right- Primary Closed fracture of unspecified phalanx or phalanges of hand Aftercare for healing traumatic fracture of other bone documented in this encounter Care Teams Whanau Support Worker Relationship Specialty Start Date End Date Joseph Ramsay MD PCP - General Pediatrics 06/27/13 documented as of this encounter
--- OUTSIDE RECORDS SUMMARY | 2024-02-05 00:26 | XMS_ITS | Encounter Summary ---
Author Organization [facility] Address [address] [place] [address] Care Team Providers Care Woodwork Salvage Inspector Name Role Phone Joseph Ramsay MD Primary Care Provider [phone] Encounter Details Date Type Department Care Team (Late st Contact Info) Description 06/27/2013 9:51 AM CDT - 06/27/2013 11:59 PM CDT Hospital Encounter [facility] Pediatrics - Radiology [address] [place] [id number] Mariely Prince MD [address] [place] [id number] Discharge Disposition: Home or Self Care Social [...] XR HAND RIGHT 3VW OR MORE Routine 06/27/2013 9:55 AM CDT Finger fracture, right documented in this encounter Results * XR HAND 3+ VW RIGHT (06/27/2013 [...] Injury, other and unspecified, hand, except finger documented in this encounter Care Teams Woodwork Salvage Inspector Relationship Specialty Start Date End Date Joseph Ramsay MD PCP - General Pediatrics 06/27/13 documented as of this encounter
--- OUTSIDE RECORDS SUMMARY | 2024-02-05 00:26 | XMS_ITS | Clinical Summary ---
Author Organization [facility] Address [address] [place] [address] Care Team Providers Care Tree Care Foreman Name Role Phone Joseph Ramsay MD Primary Care Provider [phone] Source Comments [facility],non-owned Affiliates and Associated Physician Practices is amultiple site organization consisting of ambulatory clinics and hospital sitesin [place] and [place]. This disclosure is being madepursuant to the Care Everywhere program and may not contain all information available regarding this patient. Last updated 17.[facility] Allergies No known active allergies Medications Be [...] 10/04/2023 8:11 PM CDT Plan of Treatment Health Maintenance Due Date Last Done Comments HIV SCREENING 2016 HPV VACCINE (1 - Male 3-dose series) 2016 HEPATITIS C SCREENING 04/17/2019 HEPATITIS B VACCINE (1 of 3 - 19+ 3-dose series) 2020 DEPRESSION SCREENING 02/05/2023 COVID-19 VACCINE (3 - 2023-2 5 season) 2023 07/10/2020, 06/12/2020 INFLUENZA VACCINE (#1) 2023 DTAP/TDAP/TD VACCINES (2 - T d or Tdap) 10/03/2033 10/04/2023 ZOSTER VACCINE (1 of 2) 04/22/2051 HIB VACCINE Aged Out No longer eligi ble based on patient's age to complete this topic MENINGOCOCCAL VACCINE Aged Out No maria eugenia karon eligible based on patient's age to complete this topic PNEUMOCOCCAL VACCINE Aged Out No long er eligible based on patient's age to complete this topic Care Teams Tree Care Foreman Relationship Specialty Start Date End Date Joseph Ramsay MD PCP - General Pediatrics 06/27/13
== END 2024-01-28 23:56 | disposition left against medical advice (07) ==
PROVIDERS: PCP Pediatrics
DX: Z53.21 Procedure and treatment not carried out due to patient leaving prior to being seen by health care provider (principal)
CPT/HCPCS: 99199

== ENCOUNTER 2024-02-09 08:34 | Emergency (ER) | payer BC, SELFPAY ==
[2024-02-09 08:42] VITALS: BP 135/70; PULSE 53; RESP 16; TEMP 36.8; O2SAT 100
--- NOTE | 2024-02-09 08:56 | ED.EYEPROB ---
HPI - Eye Problem General Chief complaint: Eye Problems Stated complaint: Eyes Irritation Time Seen by Provider: 02/09/24 09:21 Source: patient and RN notes reviewed Mode of arrival: ambulatory Limitations: no limitations History of Present Illness HPI Narrative: 23-year-old male presents with concern of for eye irritation, redness, drainage this started last night. He denies pain. Denies vision changes. Reports his right eye was crusted shut when he this Related Data Allergies Allergy/AdvReac Type Severity Reaction Status Date / Time No Known Allergies Allergy Verified 02/09/24 08:47 Review of Systems Review of Systems: CONSTITUTIONAL: Denies malaise, chills, sweats, or fever. EYES: Denies visual changes. Reports bilateral redness, irritation, discharge. ENT: Denies rhinorrhea, congestion, sinus pain, otalgia or sore throat. SKIN: Denies rash or itching. NEUROLOGIC: Denies numbness, weakness, or headache. PSYCHIATRIC: Denies anxiety or depression. All systems reviewed & are unremarkable except as noted in HPI and below PMFSH Comments At time of signature, agree with nursing past medical, surgical, social and family history. There is no relevant family history pertinent to the presenting complaint Exam Narrative: GENERAL: Well-appearing, well-nourished, and in no acute distress. HEAD: Normocephalic, atraumatic. EYES: PERRLA and EOMI. No nystagmus. Right sclera and conjunctivae injected, left eye unremarkable. Upper and lower eyelid unremarkable, no periorbital edema noted ENT: Nares clear, turbinates pink, no rhinorrhea or epistaxis. Mucous membranes moist. TM pearly khan with sharp light reflex bilaterally; no tragal tenderness. NECK: Supple. CHEST: No respiratory distress. Speaks in full sentences. HEART: Regular rate and rhythm. SKIN: Warm, dry, no visible rash. NEURO: Alert and oriented x3. PSYCH: Normal mood and affect Course Course Emergency Course: Patient is aware of diagnosis, understands and agrees to treatment plan. Anticipatory guidance given. Patient agrees to follow-up as directed and is aware of reasons to seek care at the emergency department. Portions of this record may have been created with voice recognition software Level of Care: Express Care Visit Vital Signs Vital signs: Vital Signs Temperature 98.2 F 02/09/24 08:42 Pulse Rate 53 L 02/09/24 08:42 Respiratory Rate 16 02/09/24 08:42 Blood Pressure 135/70 02/09/24 08:42 Pulse Oximetry 100 02/09/24 08:42 Oxygen Delivery Room Air 02/09/24 08:42 Temperature 98.2 F 02/09/24 08:42 Pulse Rate 53 L 02/09/24 08:42 Respiratory Rate 16 02/09/24 08:42 Blood Pressure 135/70 02/09/24 08:42 Pulse Oximetry 100 02/09/24 08:42 Oxygen Delivery Room Air 02/09/24 08:42 Reviewed. MDM - Eye Problem MDM Narrative Medical decision making narrative: Consideration of the following conditions may be warranted for the presenting problem, they are not final diagnoses: Bacterial conjunctivitis, allergic conjunctivitis, viral conjunctivitis, foreign body, blepharitis, chalazion, hordeolum, corneal abrasion, preseptal cellulitis, orbital cellulitis. No evidence of proptosis, ophthalmoplegia, vision loss, pain with eye movement. Exam findings show no acute concerns or changes; patient is non-toxic appearing and is in no distress. Patient is appropriate for outpatient treatment and follow-up. Critical Care Time Critical Care Time Critical Care Time: No Discharge Plan Discharge Clinical Impression: Conjunctivitis Patient Disposition: Home, Self-Care Condition: Stable Instructions: Conjunctivitis (ED) Additional Instructions: Do not touch or rub your eye. Use a warm or cool washcloth on your eye for comfort Use eyedrops as directed Practice good handwashing and hygiene to prevent spread of infection You may take Tylenol or ibuprofen for pain Follow-up with PCP or assembly line inspector if condition is not improving in 2-3days. Go to the emergency room if you have pain behind your eye, pressure behind your eye, difficulty seeing, or other severe symptoms Patient Language: Montserratian Prescriptions: New polymyxin B sulf-trimethoprim 10,000 unit- 1 mg/mL drops 1 drp RIGHT EYE Q3H 7 Days Qty: 10 0RF Rx Instructions: while awake; do not exceed 6 doses in 24 hours Follow-up/Referrals: Lashonda,NINA Dickinson [Primary Care Provider] - Time of Disposition: 09:28
== END 2024-02-09 09:45 | disposition home or self-care (01) ==
PROVIDERS: Emergency Provider Nurse Practitioner; PCP Physician Assistant
DX: H10.9 Unspecified conjunctivitis (principal)
CPT/HCPCS: 99203; G0463